=== PATIENT | female | born 1945 | race Caucasian/White ===

== ENCOUNTER 2016-04-09 06:56 | Day surgery (SDC) | payer MEDICARE ==
--- NOTE | 2016-03-28 06:22 | HP ---
DATE OF ADMISSION: 04/02/2016 CHIEF COMPLAINT: Right inguinal adenopathy. HISTORY OF PRESENT ILLNESS: Patient is a 70-year-old female who recently palpated a mass in the right groin approximately 2 months ago. It has not changed much in size since then. It is mildly tender at times. She had a CAT scan showing what appeared to represent a large lymph node measuring 2.7 cm. This does not fluctuate in size. She has tried antibiotics twice with no improvement. PAST MEDICAL HISTORY: Denies. PAST SURGICAL HISTORY: None. MEDICATIONS: Vitamins. ALLERGIES: None. PHYSICAL EXAM: GENERAL: Well-developed, well-nourished female in no distress. HEENT: Normocephalic. Sclerae anicteric. No adenopathy. CHEST: No deformities. ABDOMEN: Soft, nontender. Palpable inguinal node measuring approximately 3 cm, minimally tender. No erythema. No overlying skin changes. IMPRESSION: A 70-year-old female with right inguinal adenopathy. PLAN: Will proceed with operative excision on 04/02. The risks of bleeding, infection, seroma formation, numbness and recurrence were discussed. The patient understands and wishes to proceed.
[2016-04-08 12:37] VITALS: BMI 23.6
[~2016-04-09 06:56] MED LIST: HEPARIN SODIUM,PORCINE 5,000 UNIT/ML 1 ML VIAL SQ ONE; HYDROmorphone 1 MG/ML 1 ML SYRINGE IVP PRN; LACTATED RINGERS 1,000 ML IV SCH; LIDOCAINE 1% 20 ML VIAL (10MG/ML) FOR IV START INTRADERMA PRN; ONDANSETRON 4 MG/2 ML VIAL IVP ONE
[2016-04-09] MEDS ORDERED: ePHEDrine 50 MG/ML 1 ML AMP ONE (07:43)
[2016-04-09] MEDS ORDERED: MIDAZOLAM 2 MG/2 ML VIAL ONE (07:43)
[2016-04-09] MEDS ORDERED: PROPOFOL 10 MG/ML 20 ML VIAL IV ONE (07:43)
[2016-04-09] MEDS ORDERED: LIDOCAINE 1% INJ 10MG/ML (20 ML MDV) ONE (07:43)
[2016-04-09] MEDS ORDERED: fentaNYL (PF) 50 MCG/ML 2 ML AMP ONE (07:43)
[2016-04-09] MEDS: ceFAZolin 2 GM in SODIUM CHLORIDE 0.9% 100 ML IVPB ONE ×2 (07:47→07:51)
[2016-04-09] MEDS ORDERED: BUPIVACAIN-EPI 0.25%-1:200,000 30 ML VIAL SQ ONE ×2 (07:48→08:32)
[2016-04-09] MEDS ORDERED: NALOXONE 0.4 MG/ML 1 ML VIAL IV PRN (08:43)
--- NOTE | 2016-04-09 08:49 | P.PCN ---
Date of Procedure: 04/09/16 Procedure(s) Performed: PREOPERATIVE DIAGNOSIS: Right inguinal adenopathy POSTOPERATIVE DIAGNOSIS: Same PROCEDURE: Right inguinal lymph node biopsy SURGEON: Starla EBL: 5 John ANESTHESIA: Gen. COMPLICATIONS: None OPERATIVE PROCEDURE: Placed in the supine position. The right groin was prepped and draped in usual sterile fashion. A palpable lymph node in the right groin was identified. A horizontal incision was made overlying this mass. Subcutaneous tissues were divided using electrocautery. The lymph node was excised using a combination of electrocautery and blunt dissection and the Harmonic scalpel. Small lymphatic vessels were clipped using the Ligaclip. The mass measured about 3 x 2 cm. This was sent to pathology for close evaluation as a fresh specimen. I utilized snow Gelfoam in the operative site to assist with hemostasis and hopefully prevent seroma formation. Subcutaneous tissues were then closed using 3-0 Vicryl sutures and the skin using a running 4 -0 Monocryl stitch. Steri-Strips and sterile dressings were applied. DISPOSITION: Stable to recovery room
[2016-04-09 08:52] VITALS: TEMP 96.8
[2016-04-09 09:06] VITALS: RESP 18
[2016-04-09 10:20] VITALS: BP 114/61; PULSE 81
== END 2016-04-09 10:18 | disposition home or self-care (01) ==
LOC: OR 06:56
PROVIDERS: ATTEND Surgery
DX: C85.15 Unspecified B-cell lymphoma, lymph nodes of inguinal region and lower limb (principal); I10 Essential (primary) hypertension; Z79.899 Other long term (current) drug therapy
CPT/HCPCS: 38500; 88184; 88185; 88342; 88307; 88341; J2250; J1644; J0690; J2405; J2001; J3010; J2704

== ENCOUNTER → 2016-04-24 | Outpatient (CLI) | payer MEDICARE ==
[2016-04-24 08:34] LABS: CH 31.2; HCT 43.5 % (34.0-46.0); HDW 2.71; HGB 14.7 gm/dL (11.4-16.0); MCH 31.3 pg (25.0-35.0); MCHC 33.9 g/dL (31.0-37.0); MCV 92.4 fL (80.0-100.0); Mean Platelet Volume 7.5; RBC 4.71 m/uL (3.80-5.40); RDW 13.4 % (11.5-15.5); WBC 5.1 k/uL (3.8-10.6)
[2016-04-24 08:49] LABS: ALT 35 U/L (9-52); AST 31 U/L (14-36); Alkaline Phosphatase 90 U/L (38-126); Anion Gap 12 mmol/L; Blood Urea Nitrogen 14 mg/dL (7-17); Calcium 10.2 mg/dL (8.4-10.2); Carbon Dioxide 30 mmol/L (22-30); Chloride 103 mmol/L (98-107); Glucose 87 mg/dL (74-99); LDH 436 U/L (313-618); Non-African American GFR(MDRD) >60 (>60 ml/min/1.73 sqM); Potassium 4.3 mmol/L (3.5-5.1); Sodium 145 mmol/L (137-145); Total Protein 7.9 g/dL (6.3-8.2)
--- NOTE | 2016-04-24 09:44 | CT ---
EXAMINATION TYPE: CT chest abdomen w con DATE OF EXAM: 04/24/2016 9:36 AM COMPARISON: CT pelvis February 20, 2016 HISTORY: Newly diagnosed right groin lymphoma. CT DLP: 399.90 mGycm. Automated Exposure Control for Dose Reduction was Utilized. CONTRAST: CT scan of the thorax and abdomen are performed with oral and with IV Contrast, patient injected with 100 ml mL of Omnipaque 300. FINDINGS: LUNGS: The lungs are predominantly clear, there is no concerning parenchymal mass or nodule identifie d. Some mild scattered areas of linear atelectasis are present towards the periphery bilaterally. T here is no pleural effusion or pneumothorax seen. The tracheobronchial tree is patent. MEDIASTINUM: There are no greater than 1 cm hilar or mediastinal lymph nodes. No pericardial effusi on is seen. Ascending aorta measures up to 3.5 cm in diameter on axial image 25. Heart size is mildl y enlarged. OTHER: There are surgical clips in the left breast lateral aspect from lumpectomy. No suspicious axil denzel adenopathy is seen bilaterally. LIVER/GB: No significant abnormality is appreciated. PANCREAS: No significant abnormality is seen. SPLEEN: No significant abnormality is seen. ADRENALS: No significant abnormality is seen. KIDNEYS: No significant abnormality is seen. BOWEL: No significant abnormality is seen. LYMPH NODES: No greater than 1cm abdominal lymph nodes are appreciated. OSSEOUS STRUCTURES: Multilevel facet arthropathy is seen in the lower lumbar spine. Multilevel spurri ng in the thoracolumbar spine is present. Slight dextroconvex scoliotic curvature centered in the mid to lower thoracic spine is noted. OTHER: Small fat-containing umbilical hernia is noted. IMPRESSION: No additional suspicious adenopathy is identified in the thorax or abdomen.
== END | disposition home or self-care (01) ==
LOC: RADXRMAIN 07:53
PROVIDERS: ATTEND Internal Medicine Hematology & Oncology
DX: Z03.89 Encounter for observation for other suspected diseases and conditions ruled out (principal); C85.15 Unspecified B-cell lymphoma, lymph nodes of inguinal region and lower limb
CPT/HCPCS: 80053; 83615; 85027; 71260; 74160; 36415; Q9967

== ENCOUNTER 2016-05-08 06:10 | Day surgery (SDC) | payer MEDICARE ==
[2016-05-06 09:07] VITALS: BMI 24.0
[~2016-05-08 06:10] MED LIST changes: -HEPARIN SODIUM,PORCINE 5,000 UNIT/ML 1 ML VIAL SQ ONE; -HYDROmorphone 1 MG/ML 1 ML SYRINGE IVP PRN; -ONDANSETRON 4 MG/2 ML VIAL IVP ONE
[2016-05-08 06:49] VITALS: TEMP 97.2
[2016-05-08] MEDS ORDERED: LIDOCAINE 1% INJ 10MG/ML (20 ML MDV) ONE (07:07)
[2016-05-08] MEDS ORDERED: PROPOFOL 10 MG/ML 20 ML VIAL IV ONE (07:07)
[2016-05-08] MEDS ORDERED: KETAMINE 10 MG/ML 20 ML VIAL ONE (07:07)
[2016-05-08] MEDS ORDERED: fentaNYL (PF) 50 MCG/ML 2 ML AMP ONE (07:07)
[2016-05-08 07:32] VITALS: RESP 16
[2016-05-08 07:45] VITALS: BP 134/81; PULSE 58
[2016-05-08 08:28] LABS: Basophils % (A) 0 %; CH 31.4; CHCM 34.2; Eosinophils # (A) 0.2 k/uL (0-0.7); Eosinophils % (A) 3 %; HCT 45.3 % (34.0-46.0); HDW 2.56; Luc # (Auto) 0.19; Luc % (Auto) 3; Lymphocytes # (A) 1.6 k/uL (1.0-4.8); Lymphocytes % (A) 30 %; MCH 30.5 pg (25.0-35.0); MCHC 33.1 g/dL (31.0-37.0); MCV 92.3 fL (80.0-100.0); Mean Platelet Volume 7.1; Monocytes # (A) 0.3 k/uL (0-1.0); Monocytes % (A) 5 %; Neutrophils # (A) 3.2 k/uL (1.3-7.7); Neutrophils % (A) 59 %; RBC 4.91 m/uL (3.80-5.40); RDW 13.4 % (11.5-15.5); WBC 5.5 k/uL (3.8-10.6); WBC (Perox) 5.36
--- NOTE | 2016-05-08 08:46 | PCN ---
DATE OF PROCEDURE: 05/08/2016 PROCEDURE: Bone marrow aspirate and biopsy. PREOPERATIVE DIAGNOSIS: Non-Hodgkin lymphoma. POSTOPERATIVE DIAGNOSIS: Non-Hodgkin lymphoma. DETAILS: Utilizing sterile technique, the skin overlying the right iliac crest was prepared with Betadine and alcohol. After adequate sterile draping, local anesthesia and systemic sedation, size 11, 4-inch Jamshidi needle was utilized to access the periosteum with ease. A total of 15 mL of aspirate and 2 cm bone core biopsies were obtained. The patient tolerated the procedure well. There were no immediate procedure-related complications. Total blood less than 1 mL. Results pending.
== END 2016-05-08 08:01 | disposition home or self-care (01) ==
LOC: OR 06:10
PROVIDERS: ATTEND Internal Medicine Hematology & Oncology
DX: C85.90 Non-Hodgkin lymphoma, unspecified, unspecified site (principal); Z85.3 Personal history of malignant neoplasm of breast; I10 Essential (primary) hypertension; Z79.899 Other long term (current) drug therapy
CPT/HCPCS: 85025; 38221; J2001; J3010; J2704; G0364

== ENCOUNTER → 2016-11-07 | Outpatient (CLI) | payer MEDICARE ==
--- NOTE | 2016-11-08 14:13 | US ---
EXAMINATION TYPE: US carotid duplex BILAT DATE OF EXAM: 11/07/2016 COMPARISON: NONE CLINICAL HISTORY: H53.122 TRANSIENT VISUAL LOSS LT EYE. Pt states transient loss of vision in left ey e EXAM MEASUREMENTS: RIGHT: Peak Systolic Velocity (PSV) cm/sec ----- Right CCA: 91.1 ----- Right ICA: 95.4 ----- Right ECA: 88.2 ICA/CCA ratio: 1.0 RIGHT: End Diastole cm/sec ----- Right CCA: 17.7 ----- Right ICA: 24.6 ----- Right ECA: 10.2 LEFT: Peak Systolic Velocity (PSV) cm/sec ----- Left CCA: 75.4 ----- Left ICA: 106 ----- Left ECA: 68.2 ICA/CCA ratio: 1.4 LEFT: End Diastole cm/sec ----- Left CCA: 17.3 ----- Left ICA: 30.0 ----- Left ECA: 5.3 VERTEBRALS (direction of flow): Right Vertebral: Antegrade Left Vertebral: Antegrade No significant velocity elevations bilaterally Grayscale, color Doppler, spectral Doppler imaging performed of the carotid arteries IMPRESSION: no hemodynamic significant stenosis of the proximal internal carotid arteries bilaterall y by Doppler criteria, and indirect measurement of carotid stenosis
== END | disposition home or self-care (01) ==
LOC: RADUSWWP 15:55
PROVIDERS: ATTEND Family Medicine
DX: H53.122 Transient visual loss, left eye (principal)
CPT/HCPCS: 93880

== ENCOUNTER → 2017-08-14 | Outpatient (CLI) | payer MEDICARE ==
--- NOTE | 2017-08-14 16:17 | MR ---
EXAMINATION TYPE: MR angio head wo con DATE OF EXAM: 08/14/2017 COMPARISON: NONE HISTORY: fatigue TECHNIQUE: Time of flight images focusing on the [place] of [place] were performed without contrast. FINDINGS: There is an atrophic A1 segment. The middle cerebral artery trifurcation on the right shows susceptibility artifact. There is a gradual tapering of the right middle cerebral artery, questionab le signal void seen on axial image 99, 100 within the lumen. There is no evident recurrent aneurysm. There is enhancement of middle cerebral artery branches distal to the signal void at the trifurcation on the right. IMPRESSION: Postprocedural changes present and additional findings above questionable clinical significance, diff icult to exclude a luminal abnormality in the right middle cerebral artery, there is artifact. A Yellow level critical message alert has been initiated for William Ware MD via the [employer] Critical Results System on 08/14/2017 4:14 PM. This message alert has been sent to William Ware MD via the preferences provided by the clinician for the receipt of Radiology Critical Findings. Message ID [id number].
== END | disposition home or self-care (01) ==
LOC: RADMRIMAIN 13:31
PROVIDERS: ATTEND Family Medicine
DX: R53.83 Other fatigue (principal); Z98.890 Other specified postprocedural states
CPT/HCPCS: 70544

== ENCOUNTER 2017-10-27 08:39 | Emergency (ER) | payer MEDICARE ==
[2017-10-27 08:46] VITALS: RESP 18
[2017-10-27] MEDS ORDERED: ACETAMINOPHEN IV (For NPO) 1,000 MG in SALINE 1 100ML.BAG IVPB STA (08:55)
[2017-10-27] MEDS ORDERED: SODIUM CHLORIDE 0.9% 500 ML IV STA (08:55)
[2017-10-27] MEDS ORDERED: SODIUM CHLORIDE 0.9% 1,000 ML IV STA (08:55)
--- NOTE | 2017-10-27 08:58 | ED ---
Neuro HPI - General Chief Complaint: Neuro Symptoms/Deficit Stated Complaint: Headache/numb on side face Time Seen by Provider: 10/27/17 08:48 Source: patient, RN notes reviewed Mode of arrival: ambulatory Limitations: no limitations - History of Present Illness Is the patient presenting with stroke symptoms?: No Initial Comments: This is a 73-year-old female history of a right MCA aneurysm coiling in April of this year at [facility] who states he had the onset last night and woke up this morning with left-sided facial pain and numbness. She states that the left side of her face around her ear demonstrates discomfort. Discussion she tries open her mouth. She denies any overt ear pain sore throat rhinorrhea cough. She does have a left-sided headache. Nonspecific in nature. No neck pain no focal deficits. No fevers chills nausea vomiting sweats or other symptoms. She does state that over the past several days she's noticed pain in her left jaw area when she chews. - Related Data Home Medications: Home Medications Medication Instructions Recorded Confirmed Bisoprolol-Hctz 2.5-6.25 mg [Ziac 1 tab PO DAILY 04/08/16 10/27/17 2.5-6.25] Multivit with Calcium,Iron,Min 1 tab PO DAILY 04/08/16 10/27/17 [Women's Multivitamin] Aspirin EC [Ecotrin Low Dose] 81 mg PO DAILY 10/27/17 10/27/17 Clopidogrel [Plavix] 75 mg PO DAILY 10/27/17 10/27/17 Allergies/Adverse Reactions: Allergies Allergy/AdvReac Type Severity Reaction Status Date / Time No Known Allergies Allergy Verified 10/27/17 09:05 Review of Systems ROS Statement: Those systems with pertinent positive or pertinent negative responses have been documented in the HPI. ROS Other: All systems not noted in ROS Statement are negative. General Exam - General Exam Comments Initial Comments: This is a well-developed well-nourished awake alert oriented 3 female Limitations: no limitations General appearance: alert, anxious Head exam: Present: atraumatic, normocephalic, normal inspection Eye exam: Present: normal appearance, PERRL, EOMI. Absent: scleral icterus, conjunctival injection, periorbital swelling ENT exam: Present: normal exam, normal oropharynx, mucous membranes moist, TM's normal bilaterally, other (There is tenderness palpation over the left TMJ. Nose crepitation or step-off.) Neck exam: Present: normal inspection. Absent: tenderness, meningismus, lymphadenopathy Respiratory exam: Present: normal lung sounds bilaterally. Absent: respiratory distress, wheezes, rales, rhonchi, stridor Cardiovascular Exam: Present: regular rate, normal rhythm, normal heart sounds. Absent: systolic murmur, diastolic murmur, rubs, gallop, clicks GI/Abdominal exam: Present: soft, normal bowel sounds. Absent: distended, tenderness, guarding, rebound, rigid Extremities exam: Present: normal inspection, full ROM, normal capillary refill. Absent: tenderness, pedal edema, joint swelling, calf tenderness Back exam: Present: normal inspection Neurological exam: Present: alert, oriented X3, CN II-XII intact Psychiatric exam: Present: normal affect, normal mood Skin exam: Present: warm, dry, intact, normal color. Absent: rash Stroke MDM - Lab Data Result diagrams: 10/27/17 08:55 10/27/17 08:55 Lab Results 10/27/17 10/27/17 Range/Units 08:55 08:55 WBC 5.5 (3.8-10.6) k/uL RBC 5.14 (3.80-5.40) m/uL Hgb 15.2 (11.4-16.0) gm/dL Hct 47.6 H (34.0-46.0) % MCV 92.7 (80.0-100.0) fL MCH 29.7 (25.0-35.0) pg MCHC 32.0 (31.0-37.0) g/dL RDW 13.9 (11.5-15.5) % Plt Count 297 (150-450) k/uL Neutrophils % 65 % Lymphocytes % 26 % Monocytes % 5 % Eosinophils % 2 % Basophils % 1 % Neutrophils # 3.6 (1.3-7.7) k/uL Lymphocytes # 1.4 (1.0-4.8) k/uL Monocytes # 0.3 (0-1.0) k/uL Eosinophils # 0.1 (0-0.7) k/uL Basophils # 0.0 (0-0.2) k/uL Sodium 142 (137-145) mmol/L Potassium 3.9 (3.5-5.1) mmol/L Chloride 108 H (98-107) mmol/L Carbon Dioxide 26 (22-30) mmol/L Anion Gap 8 mmol/L BUN 13 (7-17) mg/dL Creatinine 0.64 (0.52-1.04) mg/dL Est GFR (CKD-EPI)AfAm >90 (>60 ml/min/1.73 sqM) Est GFR (CKD-EPI)NonAf 90 (>60 ml/min/1.73 sqM) Glucose 89 (74-99) mg/dL Calcium 9.8 (8.4-10.2) mg/dL Magnesium 2.0 (1.6-2.3) mg/dL Total Bilirubin 0.9 (0.2-1.3) mg/dL AST 57 H (14-36) U/L ALT 65 H (9-52) U/L Alkaline Phosphatase 110 (38-126) U/L Total Protein 7.0 (6.3-8.2) g/dL Albumin 4.1 (3.5-5.0) g/dL - NIH Stroke Scale 1a. Level of Consciousness: (0) alert 1b. LOC Questions: (0) answers correctly 1c. LOC Commands: (0) performs tasks correctly 2. Best Gaze: (0) normal 3. Visual: (0) no visual loss 4. Facial Palsy: (0) normal symmetrical movement 5a. Motor Arm Left: (0) no drift 5b. Motor Arm Right: (0) no drift 6a. Motor Leg Left: (0) no drift 6b. Motor Leg Right: (0) no drift 7. Limb Ataxia: (0) absent 8. Sensory: (0) normal 9. Best Language: (0) no aphasia 10. Dysarthria: (0) normal 11. Extinction/Inattention: (0) no abnormality - Medical Decision Making I did review the imaging and reports no acute findings. I did a long discussion with the patient she's feeling much improved after Tylenol was administered. 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 Patient does have a bite block that she uses years ago, she does grind her teeth at night. She'll be discharged with instructions for warm compresses, Tylenol and follow-up with her dentist. Past Medical History Past Medical History: Cancer, CVA/TIA, Hypertension, Osteoarthritis (OA) Additional Past Medical History / Comment(s): hx. breast cancer 1997-had lumpectomy & radiation. RECENT DX OF LYMPHOMA, Brain anurysm right and left, Stroke History of Any Multi-Drug Resistant Organisms: None Reported Past Surgical History: Breast Surgery, Hysterectomy, Orthopedic Surgery Additional Past Surgical History / Comment(s): left breast lumpectomy, repair fx. left arm. rt groin lumpectomy 04/09/16, coil for brain anuerysm 05/17 Past Anesthesia/Blood Transfusion Reactions: No Reported Reaction Past Psychological History: No Psychological Hx Reported Smoking Status: Never smoker Past Alcohol Use History: None Reported Past Drug Use History: None Reported - Past Family History Father Family Medical History: Cancer Course Vital Signs 10/27/17 08:41 Temperature 97.9 F Pulse Rate 71 Respiratory 18 Rate Blood Pressure 164/85 O2 Sat by Pulse 100 Oximetry Disposition Clinical Impression: TMJ arthralgia Disposition: HOME SELF-CARE Condition: Good Instructions: Temporomandibular Disorder (ED) Additional Instructions: [id number] Tylenol, warm compresses, follow-up with your dentist Is patient prescribed a controlled substance at d/c from ED?: No Referrals: William Ware MD [Primary Care Provider] - 1-2 days
[2017-10-27 09:24] LABS: Basophils % (A) 1 %; Eosinophils # (A) 0.1 k/uL (0-0.7); Eosinophils % (A) 2 %; HCT 47.6 % (34.0-46.0); HGB 15.2 gm/dL (11.4-16.0); Lymphocytes # (A) 1.4 k/uL (1.0-4.8); Lymphocytes % (A) 26 %; MCH 29.7 pg (25.0-35.0); MCV 92.7 fL (80.0-100.0); Mean Platelet Volume 6.6; Monocytes # (A) 0.3 k/uL (0-1.0); Monocytes % (A) 5 %; Neutrophils # (A) 3.6 k/uL (1.3-7.7); Neutrophils % (A) 65 %; Platelet Count 297 k/uL (150-450); RBC 5.14 m/uL (3.80-5.40); RDW 13.9 % (11.5-15.5); WBC 5.5 k/uL (3.8-10.6)
[2017-10-27 09:33] LABS: ALT 65 U/L (9-52); AST 57 U/L (14-36); Albumin 4.1 g/dL (3.5-5.0); Alkaline Phosphatase 110 U/L (38-126); Anion Gap 8 mmol/L; Blood Urea Nitrogen 13 mg/dL (7-17); Calcium 9.8 mg/dL (8.4-10.2); Carbon Dioxide 26 mmol/L (22-30); Chloride 108 mmol/L (98-107); Glucose 89 mg/dL (74-99); Potassium 3.9 mmol/L (3.5-5.1); Sodium 142 mmol/L (137-145); Total Bilirubin 0.9 mg/dL (0.2-1.3)
--- NOTE | 2017-10-27 10:04 | CT ---
EXAMINATION TYPE: CT brain wo con DATE OF EXAM: 10/27/2017 COMPARISON: Pain INDICATION: Lt sided facial numbness, SUAZO, history of aneurysm coil DLP: 1063.78 mGycm, Automated exposure control for dose reduction was used. CONTRAST: None CT of the brain is performed utilizing 3 mm thick sections through the posterior fossa and 3 mm thick sections through the remaining calvarium. Study is performed within 24 hours of arrival to the hosp ital. Beam hardening artifact from the patient's right middle cranial fossa aneurysm coil is evident. No abnormal hyperdensity is present to suggest an acute intracranial hemorrhage. No mass lesion is evident. No acute infarcts are evident. Ventricles and sulci have mild age-related prominence. Paranasal sinuses and mastoid air cells within the [id number] are clear. IMPRESSIONS: 1. No acute intracranial process.
--- NOTE | 2017-10-27 10:08 | CT ---
EXAMINATION TYPE: CT facial bones wo con DATE OF EXAM: 10/27/2017 COMPARISON: None HISTORY: Lt sided facial numbness, SUAZO, history of aneurysm coil CT DLP: 404.87 mGycm CONTRAST: 0 mL of Isovue 300 The paranasal sinuses are examined in the axial plane at 2 mm thick sections. Reconstructed images i n the coronal plane were obtained. There is dental amalgam scatter artifact through the maxilla and mandible. Maxilla appears intact. Ma xillary spine is intact. Visualized Mandible appears intact. Temporomandibular junctions are normal b ilaterally. Zygomatic arches are normal. The maxillary sinuses are clear. There is some mucosal thickening within ethmoid air cells. The sph enoid sinuses are clear. The frontal sinuses are clear. The septum is evaluated. There is septal deviation to the left. Left septal spurring is also noted. There may be prior left-sided uncinectomy. The ostiomeatal units are patent. IMPRESSIONS: 1. No acute osseous abnormality. 2. Mild mucosal thickening within the ethmoid air cells. Remaining paranasal sinuses are clear.
[2017-10-27 11:27] VITALS: BP 132/63; PULSE 58; TEMP 97.6
== END 2017-10-27 11:21 | disposition home or self-care (01) ==
LOC: EC 08:39
DX: M26.609 Unspecified temporomandibular joint disorder, unspecified side (principal); I10 Essential (primary) hypertension; Z86.73 Personal history of transient ischemic attack (TIA), and cerebral infarction without residual deficits; Z85.72 Personal history of non-Hodgkin lymphomas; Z85.3 Personal history of malignant neoplasm of breast; Z79.82 Long term (current) use of aspirin; Z79.899 Other long term (current) drug therapy; Z79.01 Long term (current) use of anticoagulants
CPT/HCPCS: 36415; 80053; 83735; 85025; 70486; 70450; 99284; 96374; 96361 ×2; J0131

== ENCOUNTER → 2018-03-17 | Outpatient (CLI) | payer MEDICARE ==
--- NOTE | 2018-03-17 12:10 | CT ---
EXAMINATION TYPE: CT abdomen pelvis w con DATE OF EXAM: 03/17/2018 COMPARISON: CT abdomen dated 04/24/[address] pelvis 04/22/2015 HISTORY: LLQ pain CT DLP: 396.3 mGycm Automated exposure control for dose reduction was used. TECHNIQUE: Helical acquisition of images from the lung bases through the pelvis have been completed. CONTRAST: Performed with Oral Contrast and with IV Contrast, patient injected with 100 mL of Isovue 300. FINDINGS: Right groin shows postop changes, the soft tissue mass seen on prior CT is again noted joe ures approximately 2.2 cm in greatest dimension as compared to prior when it measured 2.8 cm. LUNG BASES: No significant abnormality is appreciated. AORTA: No significant abnormality is appreciated. LIVER/GB: No significant interval change is appreciated. PANCREAS: No significant abnormality is seen. 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 ADRENALS: No significant abnormality is seen. KIDNEYS: No significant abnormality is seen. REPRODUCTIVE ORGANS: Not seen BOWEL: No significant abnormality is seen. FREE AIR: No Free Air visible. ASCITES: None visible. PELVIC ADENOPATHY: None visualized. RETROPERITONEAL ADENOPATHY: No Retroperitoneal Adenopathy visible. URINARY BLADDER: No significant abnormality is seen. OSSEOUS STRUCTURES: Degenerative disc changes in the visualized lumbar spine. IMPRESSION: POSTOP CHANGES TO RIGHT GROIN MASS DESCRIBED. SPLENOMEGALY.
== END | disposition home or self-care (01) ==
LOC: RADCTMAIN 10:44
PROVIDERS: ATTEND Internal Medicine Hematology & Oncology
DX: C82.05 Follicular lymphoma grade I, lymph nodes of inguinal region and lower limb (principal); R16.1 Splenomegaly, not elsewhere classified; R19.09 Other intra-abdominal and pelvic swelling, mass and lump; Z98.890 Other specified postprocedural states
CPT/HCPCS: 74177; Q9967

== ENCOUNTER → 2018-04-10 | Outpatient (CLI) | payer MEDICARE ==
--- NOTE | 2018-04-13 10:47 | MR ---
MR pelvis with and without contrast HISTORY: Non-Hodgkin's lymphoma Multiplanar multisequence and postcontrast images through the pelvis following 5.5 cc Gadavist IV. Correlation CT abdomen pelvis 03/17/2017 The right groin mass is measuring approximately 2.6 cm on postcontrast images, slightly increased com pared to prior CT. There is susceptibility artifact due to patient's surgical clips in the right groi n. No evident free fluid. Uterus and adnexal structures are not seen. Urinary bladder is normal. No a dditional pelvic adenopathy. Bone marrow signal is maintained. Diverticular change is associated with the sigmoid colon. Mild increased signal present at the insertion of the gluteus tendons at the grea ter trochanters could be related to tendinosis or small partial tears. Degenerative disc changes at t he lumbosacral junction. IMPRESSION: Slight interval growth of patient's right groin mass. Additional findings above.
== END ==
LOC: RADMRIMAIN 13:00
PROVIDERS: ATTEND Family Medicine
DX: Z08 Encounter for follow-up examination after completed treatment for malignant neoplasm (principal); R19.09 Other intra-abdominal and pelvic swelling, mass and lump; Z85.72 Personal history of non-Hodgkin lymphomas
CPT/HCPCS: 72197; A9585

== ENCOUNTER → 2019-07-30 | Outpatient (CLI) | payer MEDICARE ==
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
[2019-07-30 10:04] LABS: HCT 52.6 % (34.0-46.0); HGB 16.9 gm/dL (11.4-16.0); MCH 29.8 pg (25.0-35.0); MCHC 32.1 g/dL (31.0-37.0); MCV 92.7 fL (80.0-100.0); Mean Platelet Volume 7.4; Platelet Count 375 k/uL (150-450); RBC 5.67 m/uL (3.80-5.40); RDW 13.5 % (11.5-15.5); WBC 5.9 k/uL (3.8-10.6)
[2019-07-30 10:08] LABS: ALT 29 U/L (4-34); AST 36 U/L (14-36); African American GFR (CKD) >90 (>60 ml/min/1.73 sqM); Albumin 4.4 g/dL (3.5-5.0); Alkaline Phosphatase 94 U/L (38-126); Anion Gap 6 mmol/L; Blood Urea Nitrogen 11 mg/dL (7-17); Calcium 10.4 mg/dL (8.4-10.2); Carbon Dioxide 31 mmol/L (22-30); Chloride 104 mmol/L (98-107); Cholesterol 197 mg/dL (<200); Glucose 92 mg/dL (74-99); HDL Cholesterol 86 mg/dL (40-60); LDL Cholesterol,Calculated 91 mg/dL (0-99); Non-African American GFR(CKD) 89 (>60 ml/min/1.73 sqM); Potassium 4.1 mmol/L (3.5-5.1); Sodium 141 mmol/L (137-145); Total Bilirubin 0.9 mg/dL (0.2-1.3); Total Protein 7.5 g/dL (6.3-8.2); Triglycerides 102 mg/dL (<150)
== END | disposition home or self-care (01) ==
LOC: RADCTMAIN 09:15
PROVIDERS: ATTEND Family Medicine
DX: S04.011A Injury of optic nerve, right eye, initial encounter (principal); I10 Essential (primary) hypertension; R54 Age-related physical debility
CPT/HCPCS: 70450; 80053; 80061; 85027

== ENCOUNTER → 2019-09-13 | Outpatient (CLI) | payer MEDICARE ==
--- NOTE | 2019-09-13 08:32 | MR ---
EXAMINATION TYPE: MR knee LT wo con DATE OF EXAM: 09/13/2019 COMPARISON: None HISTORY: 74-year-old female M25.862, Left Knee Pain, Inner side behind knee. Recent steroid treatment has improved the pain. TECHNIQUE: Multiplanar, multisequence imaging of the left knee is performed without IV contrast. FINDINGS: The ACL, PCL, MCL, and LCL complex appear intact. 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 Mild diffuse thinning of medial compartment articular cartilage with mild to moderate focal cartilage irregularity along the mid weightbearing aspect. There is diffuse tear extending throughout the lateral meniscus. Tear also involves the posterior calin t. An intact [place] meniscofemoral ligament seems to anchor the posterior horn in place. Mild diff use thinning of lateral compartment articular cartilage with areas of moderate focal irregular cartil age loss along the mid to posterior weightbearing aspect of the joint. Intra-articular spurs are pres ent posteriorly along the tibial articular surface. Moderate diffuse thinning of patellar articular cartilage and mild thinning of trochlear articular ca rtilage. Extensor mechanism is intact. Anterior soft tissue swelling. Small knee joint effusion. No sizable Doherty's cyst. Trace fluid is present insinuating between the me dial head gastrocnemius and semimembranosus. Mild edema within the medial and gastrocnemius. Normal popliteal artery anatomy. Generalized muscle atrophy. No suspicious bone marrow replacement. IMPRESSION: 1. Diffuse tear involving the entire lateral meniscus with tear extending to involve the posterior ro ot as well. An intact meniscofemoral ligament seems to anchor the posterior horn in place. 2. Oblique tear posterior horn medial meniscus and small inner margin radial tear of the meniscal bod y. 3. Mild overall tricompartmental osteoarthrosis. 4. Small knee joint effusion. Mild anterior soft tissue swelling. 5. Mild edema within the medial head gastrocnemius could be edema or reactive to altered biomechanics or could represent a mild muscle strain.
== END ==
LOC: RADMRIMAIN 06:46
PROVIDERS: ATTEND Family Medicine
DX: S83.282A Other tear of lateral meniscus, current injury, left knee, initial encounter (principal); S83.242A Other tear of medial meniscus, current injury, left knee, initial encounter; M17.12 Unilateral primary osteoarthritis, left knee

== ENCOUNTER 2019-10-02 10:39 | Emergency (ER) | payer MEDICARE ==
[2019-10-02 10:45] VITALS: BP 124/70; PULSE 59; RESP 18; TEMP 98.5
--- NOTE | 2019-10-02 10:54 | ED ---
Extremity Problem HPI - General Chief complaint: Extremity Problem,Nontraumatic Stated complaint: Hip Pain Time Seen by Provider: 10/02/19 10:48 Source: patient Mode of arrival: wheelchair Limitations: physical limitation - History of Present Illness Initial comments: Patient is 74-year-old female presenting to the emergency department with a chief complaint of left hip pain. Patient reports she injured her meniscus in the left knee and she has been favoring her left hip. States she developed the hip pain over the last week. Patient states several years where she was diagnosed with bursitis and this feels somewhat the same. Patient reports there is pain with any movement of the left hip or weightbearing. Patient denies an trauma to the region. She does have history of osteoarthritis. She denies taking medications for his symptoms. She did report some numbness and tingling from few days ago that was located between the left hip and knee. States those symptoms have since resolved. - Related Data Home Medications Medication Instructions Recorded Confirmed Bisoprolol-Hctz 2.5-6.25 mg [Ziac 1 tab PO DAILY 04/08/16 10/27/17 2.5-6.25] Multivit with Calcium,Iron,Min 1 tab PO DAILY 04/08/16 10/27/17 [Women's Multivitamin] Aspirin EC [Ecotrin Low Dose] 81 mg PO DAILY 10/27/17 10/27/17 Clopidogrel [Plavix] 75 mg PO DAILY 10/27/17 10/27/17 Previous Rx's Medication Instructions Recorded predniSONE 50 mg PO DAILY #4 tab 10/02/19 Allergies Allergy/AdvReac Type Severity Reaction Status Date / Time No Known Allergies Allergy Verified 10/02/19 10:45 Review of Systems ROS Statement: Those systems with pertinent positive or pertinent negative responses have been documented in the HPI. ROS Other: All systems not noted in ROS Statement are negative. Past Medical History Past Medical History: Cancer, CVA/TIA, Hypertension, Osteoarthritis (OA) Additional Past Medical History / Comment(s): hx. breast cancer 1997-had lumpectomy & radiation. RECENT DX OF LYMPHOMA, Brain anurysm right and left, 08/17 Stroke History of Any Multi-Drug Resistant Organisms: None Reported Past Surgical History: Breast Surgery, Hysterectomy, Orthopedic Surgery Additional Past Surgical History / Comment(s): left breast lumpectomy, repair fx. left arm. rt groin lumpectomy 2/8/17, coil for brain anuerysm 05/17 Past Anesthesia/Blood Transfusion Reactions: No Reported Reaction Past Psychological History: No Psychological Hx Reported Smoking Status: Never smoker Past Alcohol Use History: Occasional Past Drug Use History: None Reported - Past Family History Father Family Medical History: Cancer General Exam Limitations: physical limitation General appearance: alert, in no apparent distress Head exam: Present: atraumatic, normocephalic, normal inspection Eye exam: Present: normal appearance, PERRL, EOMI Pupils: Present: normal accommodation ENT exam: Present: normal exam, normal oropharynx, mucous membranes moist, TM's normal bilaterally, normal external ear exam Neck exam: Present: normal inspection, full ROM. Absent: tenderness Respiratory exam: Present: normal lung sounds bilaterally. Absent: respiratory distress, wheezes, rales Cardiovascular Exam: Present: regular rate, normal rhythm, normal heart sounds GI/Abdominal exam: Present: soft. Absent: distended, tenderness, guarding Extremities exam: Present: normal inspection, tenderness (Tenderness along the anterior lateral aspect of the left hip.), normal capillary refill, other (+2 dorsalis pedis and posterior tibials bilaterally. Sensation intact in bilateral lower extremities.). Absent: full ROM (Limited range of motion in any direction due to pain in her left hip.), pedal edema, joint swelling, calf tenderness Back exam: Present: normal inspection, full ROM. Absent: tenderness, CVA tenderness (R), CVA tenderness (L) Neurological exam: Present: alert, oriented X3 Psychiatric exam: Present: normal affect, normal mood Skin exam: Present: warm, dry, intact, normal color Course Vital Signs 10/02/19 10:42 Temperature 98.5 F Pulse Rate 59 L Respiratory 18 Rate Blood Pressure 124/70 O2 Sat by Pulse 99 Oximetry Medical Decision Making - Medical Decision Making Patient is a 74-year-old female presenting to the emergency department with chief complaint of left hip pain. She did have a history of bursitis in this but feels similar. No acute findings on physical exam. Patient is scheduled to see in one week for her meniscal repair. She is neurovascularly intact in the left lower stomach. No regions of paresthesias that were initi ally described by the patient. X-ray of the left hip reveals no acute processes. No trauma. Patient states she cannot take any NSAIDs. Patient started on a five-day course of prednisone. She was advised to follow with orthopedically impaired teacher. Return parameters thoroughly discussed the patient is worsening and agreeable. Case discussed with physician. Disposition Clinical Impression: Hip bursitis, left, Left hip pain Disposition: HOME SELF-CARE Condition: Stable Instructions (If sedation given, give patient instructions): Hip Bursitis (ED) Additional Instructions: Take prescribed medication as directed. Follow-up with orthopedically impaired teacher. Return to emergency department if symptoms worsen. Prescriptions: predniSONE 50 mg PO DAILY #4 tab Is patient prescribed a controlled substance at d/c from ED?: No Referrals: William Ware MD [Primary Care Provider] - 1-2 days Time of Disposition: 11:42
--- NOTE | 2019-10-02 11:20 | XR ---
EXAMINATION TYPE: XR Hip Complete LT , 2 VIEWS DATE OF EXAM ORDERED: 10/02/2019 HISTORY: left hip painx7 days. COMPARISON: None. FINDINGS: No fracture or dislocation is seen. There are mild degenerative changes in the hip. IMPRESSION: NO ACUTE OSSEOUS LESION.
[2019-10-02] MEDS ORDERED: predniSONE 50 MG TAB PO STA (11:42)
== END 2019-10-02 11:52 | disposition home or self-care (01) ==
LOC: EC 10:39
DX: M70.72 Other bursitis of hip, left hip (principal); M19.90 Unspecified osteoarthritis, unspecified site; I10 Essential (primary) hypertension; Z79.82 Long term (current) use of aspirin; Z79.01 Long term (current) use of anticoagulants; Z86.73 Personal history of transient ischemic attack (TIA), and cerebral infarction without residual deficits; Z85.3 Personal history of malignant neoplasm of breast; Z92.3 Personal history of irradiation; Z80.9 Family history of malignant neoplasm, unspecified
CPT/HCPCS: 73502; 99283; J7512

== ENCOUNTER → 2022-08-27 | Outpatient (CLI) | payer MEDICARE ==
[2022-08-27 10:43] LABS: African American GFR (CKD) >90 (>60 ml/min/1.73 sqM); Blood Urea Nitrogen 15 mg/dL (7-17); Non-African American GFR(CKD) 90 (>60 ml/min/1.73 sqM)
--- NOTE | 2022-08-27 16:24 | CT ---
EXAMINATION TYPE: CT ChestAbdPelvis w con CT DLP: 487 mGycm, Automated exposure control for dose reduction was used. DATE OF EXAM: 08/27/2022 12:08 PM COMPARISON: CT abdomen pelvis 03/17/2018, CT chest abdomen 04/24/2016 CLINICAL INDICATION:Female, 77 years old with history of R19.09; PHH, Anemia. History of polycythemia , lymphoma and breast cancer Technique: Multiple axial images of the chest, abdomen, and pelvis were obtained following the intrav enous administration of 100 mL Isovue-300. Two-dimensional coronal and sagittal reconstructions were obtained. Findings: CHEST: LUNGS/ PLEURA: No pleural effusion, pneumothorax, focal consolidation. No suspicious pulmonary nodule or mass. AIRWAY: Patent and unremarkable.. HEART: Mildly enlarged. No pericardial effusion. MEDIASTINUM: No pathologically enlarged lymphadenopathy. VASCULATURE: No aortic aneurysm. MUSCULOSKELETAL: No acute osseous abnormalities. Mild dextro scoliotic curvature. No aggressive osseo us lesion. SOFT TISSUES/LYMPH NODES: No axillary lymphadenopathy. Post surgical changes of the left breast witho ut suspicious soft tissue identified. LOWER NECK: 1.4 cm left thyroid lobe nodule demonstrated subtle increase in size when it measured 0.9 cm in 2017. ABDOMEN: ABDOMEN LIVER: Few scattered catheter granulomas. No suspicious focal lesion. GALLBLADDER AND BILE DUCTS: Unremarkable. PANCREAS: Unremarkable. SPLEEN: Similar top end of normal for size spleen. Tiny calcified splenic artery aneurysm again demon strated and not significantly changed. ADRENAL GLANDS: Unremarkable. KIDNEYS AND URETERS: No evidence of hydronephrosis or renal calculus. The kidneys enhance symmetrical ly without suspicious focal lesion. Contrast is demonstrated within both collecting systems on the de layed phase. PELVIS BLADDER: Unremarkable REPRODUCTIVE: The uterus is surgically absent. ABDOMEN & PELVIS STOMACH AND BOWEL: Stomach and duodenum are unremarkable. No evidence of bowel obstruction. Distal co lonic diverticulosis without evidence for acute diverticulitis. Enteric contrast reaches the rectum. No focal bowel wall thickening or surrounding inflammatory changes. PERITONEUM: No evidence of pneumoperitoneum or free fluid. VASCULATURE: Mild atherosclerotic calcifications are present throughout the abdominal aorta and its b ranches. No abdominal aortic aneurysm. Few pelvic phleboliths. MUSCULOSKELETAL: No acute osseous abnormalities. No aggressive osseous lesion. Mild/moderate osteoart hritic changes of both hips. LYMPH NODES: No gross evidence for lymphadenopathy. SOFT TISSUE/ABDOMINAL WALL: Post surgical changes with surgical clips in the right groin. Resolution of previously seen soft tissue within the right groin. IMPRESSION: 1. No CT evidence for recurrence or metastatic disease within the chest, abdomen and pelvis. No patho logic lymphadenopathy identified. 2. Colonic diverticulosis without evidence for acute diverticulitis. 3. Mild increase in size of 1.4 cm left thyroid lobe hypodense nodule from 2017. This can be further evaluated with thyroid ultrasound.
== END | disposition home or self-care (01) ==
LOC: RADCTMAIN 09:14
PROVIDERS: ATTEND Internal Medicine Medical Oncology
DX: C85.90 Non-Hodgkin lymphoma, unspecified, unspecified site (principal); C50.919 Malignant neoplasm of unspecified site of unspecified female breast; D75.1 Secondary polycythemia; K57.30 Diverticulosis of large intestine without perforation or abscess without bleeding; I72.9 Aneurysm of unspecified site; E04.1 Nontoxic single thyroid nodule; D64.9 Anemia, unspecified; Z85.3 Personal history of malignant neoplasm of breast
CPT/HCPCS: 82565; 84520; 71260; 74177; 36415; Q9967